=== PATIENT | female | born 1990 | race Caucasian/White ===

== ENCOUNTER → 2018-05-19 | Emergency (ER) | payer OTHER ==
[~2018-05-19] VITALS: Ht 152.4 cm; Wt 72.6 kg
[~2018-05-19] MED LIST: LOVENOX40 MG/0.4 SUBCUTANEO; MOBIC15 MG PO; ORPH100T PO; PRENATAL CAPLE1 EACH PO; SYNTHROID50 MCG
== END | disposition home or self-care (01) ==
LOC: ER 18:26
DX: O20.0 Threatened abortion (principal)